=== PATIENT | male | born 1975 ===

== ENCOUNTER 2021-12-28 14:00 | Emergency (ER) | payer OTHER ==
[2021-12-28] MEDS ORDERED: Ciprofloxacin 0.3% Ophth Soln 5 ML Bottle EARRT ONE (14:24)
== END 2021-12-28 15:00 | disposition home or self-care (01) ==
LOC: DL.ED 14:00
DX: T16.1XXA Foreign body in right ear, initial encounter (principal); S09.301A Unspecified injury of right middle and inner ear, initial encounter; W22.09XA Striking against other stationary object, initial encounter
CPT/HCPCS: 69200; 99282-25; 99283; A9270-GY